=== PATIENT | female | born 2005 | race Caucasian/White ===

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

== ENCOUNTER 2024-12-31 07:02 | Outpatient (CLI) | payer BC, SELFPAY ==
--- NOTE | 2024-12-31 07:15 | CRLHL7_ITS ---
For Patients: As a result of the Century Cures Act, medical imaging exams and procedure reports are released immediately into your electronic medical record. You may view this report before your referring provider. If you have questions, please contact your health care provider. EXAM: MRI OF THE RIGHT FOOT, WITHOUT CONTRAST CLINICAL INDICATION: Tendon abnormality. COMPARISON PLAIN FILMS: 06/26/2024. COMPARISON CROSS-SECTIONAL IMAGING STUDIES: None. TECHNICAL: Axial, sagittal and coronal T1, PD and STIR images. FINDINGS: TENDONS AND MUSCLES: The tibialis anterior extensor hallucis longus and extensor digitorum longus tendons are intact without evidence for tendon tear, tendinopathy or tenosynovitis. The flexor, peroneal and Achilles tendons are intact. No muscle atrophy or edema. OSSEOUS STRUCTURES: No fracture, bone marrow contusion, stress change or marrow replacement process. JOINT SPACES: Joint spaces within the visualized forefoot, at the midfoot forefoot junction and within the midfoot are maintained. LIGAMENTS: The ligaments are intact including the Lisfranc ligament. SOFT TISSUES: No subcutaneous edema, mass, hematoma or fluid collection. IMPRESSION: 1. Unremarkable MRI of the right foot. Dictated by Chintan Wasserman MD @ 01/01/2025 11:46:06 AM (Electronically Signed)
== END 2024-12-31 07:03 | disposition home or self-care (01) ==
LOC: MRI 07:02
PROVIDERS: Visit Provider Podiatrist
DX: M66.271 Spontaneous rupture of extensor tendons, right ankle and foot (principal)
CPT/HCPCS: 73718